=== PATIENT | female | born 1960 | race African-American/Black ===

== ENCOUNTER 2022-04-18 16:38 | Emergency (ER) | payer OTHER ==
[~2022-04-18] VITALS: Ht 162.6 cm; Wt 49.1 kg
[~2022-04-18 16:38] MED LIST: ALOG12.5 PO; AMLO-258 PO; AMOX-429 PO; ASPI-1444 PO; ATOR40TA28 PO; CLOP75TA60 PO; INSU100I26 SQ; INSU100V SQ; METF-81 PO; METO50 PO; NORT25 PO
[2022-04-18 17:54] LABS: BASOPHILS % (AUTO) 1.2 % (0.0-2.0); EOSINOPHILS % (AUTO) 1.7 % (1.0-6.0); HEMATOCRIT 45.4 % (36-46); HEMOGLOBIN 15.1 g/dL (12.0-16.0); LYMPHOCYTES # (AUTO) 3.5 K/uL (1.0-4.8); LYMPHOCYTES % (AUTO) 45.6 % (22.0-44.0); MEAN CORPUSCULAR HEMOGLOBIN 28.6 pg (26.0-34.0); MEAN CORPUSCULAR HGB CONC 33.2 G/dL (31.0-37.0); MEAN CORPUSCULAR VOLUME 86 fL (80-100); MONOCYTES # (AUTO) 0.4 K/uL (0.1-1.0); MONOCYTES % (AUTO) 5.9 % (2.0-9.0); NEUTROPHILS # (AUTO) 3.5 K/uL (1.8-7.7); NEUTROPHILS % (AUTO) 45.6 % (40.0-70.0); PLATELET COUNT (AUTO) 295 K/uL (150-450); RED BLOOD CELL COUNT(AUTO) 5.28 MIL/uL (4.00-5.20)
[2022-04-18 18:03] LABS: ANION GAP 6 mmol/L (8-16); CALCIUM, TOTAL 9.5 mg/dL (8.8-10.5); CARBON DIOXIDE 28 mmol/L (22-29); CHLORIDE 100 mmol/L (98-107); GLUCOSE,RANDOM 294 mg/dL (70-110); POTASSIUM 3.5 mmol/L (3.5-5.1); SODIUM SERUM 134 mmol/L (136-145); UREA NITROGEN, BLOOD 8 mg/dL (7-18)
[2022-04-18 18:08] LABS: ALANINE AMINOTRANSFERASE 59 U/L (12-78); ALBUMIN 3.8 g/dL (3.4-5.0); ALKALINE PHOSPHATASE 165 U/L (46-116); ASPARTATE AMINOTRANSFERASE 31 U/L (15-37); BILIRUBIN,TOTAL 0.5 mg/dL (0.1-1.0); LIPASE 75 U/L (73-393); TOTAL PROTEIN, SERUM 7.6 g/dL (6.4-8.2)
[2022-04-18 18:15] LABS: GLOMERULAR FILTR. RATE CALC > 60 mL/min (>60)
[2022-04-18] MEDS ORDERED: MAGN296S76 PO (18:22)
[2022-04-18 18:23] VITALS: BP 136/72
== END 2022-04-18 18:35 | disposition home or self-care (01) ==
LOC: EMS 16:41
DX: R10.84 Generalized abdominal pain (principal); K59.00 Constipation, unspecified; E11.9 Type 2 diabetes mellitus without complications; I10 Essential (primary) hypertension; Z88.5 Allergy status to narcotic agent
CPT/HCPCS: 74176; 80053; 82962; 83690; 85025; 99284